=== PATIENT | female | born 1930 | race Caucasian/White ===

== ENCOUNTER 2017-01-08 18:53 | Inpatient (IN) | payer MEDICARE, BC ==
[~2017-01-08] VITALS: Ht 157.5 cm; Wt 72.0 kg
[~2017-01-08 18:53] MED LIST: B12-1CHW OR; CRAN125T PO; DOXY150C OR; DYAZ37.57 PO; LEVO.05 PO; LOVA10TA PO; SULF-154 PO; TAB-TAB PO
[2017-01-08 19:02] VITALS: BP 138/76; PULSE 110; RESP 18; TEMP 99.7; O2SAT 98
[2017-01-08 19:14] VITALS: O2SAT 97
[2017-01-08] MEDS ORDERED: ONDANSETRON HCL 4 MG/2 ML VIAL IV PUSH ONE (19:30)
[2017-01-08] MEDS ORDERED: MORPHINE SULFATE 4 MG/ML INJ IV PUSH ONE (19:30)
--- NOTE | 2017-01-08 19:30 | PD ---
HPI Chief Complaint: Pain: Acute or Chronic Time Seen by Provider: 19:25 Travel History International Travel<30 days: No Contact w/Intl Traveler<30days: No Traveled to known affect area: No History of Present Illness HPI 86-year-old female that presents to the ED for evaluation of left leg pain. Per patient she's had this left leg pain for the past 3 days. Per patient is progressively getting worse. Per daughter patient has not been able to eat or drink anything because she cannot get around because of the pain on the left leg. Per patient the left leg is from the knee down. She denies any injury or any falls. Per patient she does have swelling and erythema. Per patient is warm to touch. She was found by ambulance to have a temperature. Patient was brought here by ambulance because she cannot get around. 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 She is concerned that she might have a DVT. She cannot ambulate. Per patient the pain is 6 out of 10. Does not radiate and stays mainly in the left lower leg. She denies any numbness, tilling, weakness. Per daughter she does seem a little more confused than usual but attributes this to not eating well. Patient has a white coating and Versed. She takes no pain medications at home. She denies any history of MRSA or immunosuppression but she does take steroids daily. She has no chest pain. No shortness of breath. No back pain or neck pain. No urinary or bowel movement issues. No visual disturbances. Pain is progressively getting worse. Nothing makes the pain better. Walking makes the pain worse. PFSH Past Medical History Asthma: Yes Cancer: No Cardiovascular Problems: Yes High Cholesterol: Yes Endocrine: No Genitourinary: No Hypertension: Yes Immune Disorder: No Musculoskeletal: No Neurologic: No Psychiatric: No Reproductive: No Respiratory: Yes (4l nc home oxygen use ) Thyroid Disease: Yes (HYPOpneumosidis ) Influenza Vaccination: Yes ?: Not : 5 Para: 5 Past Surgical History Hysterectomy: Yes (PARTIAL) Other Surgery: Yes (bladder sling/mesh ) Social History Alcohol Use: Yes (occasional ) Tobacco Use: No Substance Use: No Allergies-Medications (Allergen,Severity, Reaction): Coded Allergies: Codeine (Verified Allergy, Severe, NAUSEA, 01/08/17) Versed (Verified Allergy, Unknown, 01/08/17) Reported Meds & Prescriptions Reported Meds & Active Scripts Active Reported [Natural Potassium] 99 Mg Fish Oil + D3 (Fish Oil-Cholecalciferol) 1,200-1,000 Mg-Unit Cap 1 Cap PO DAILY B-12 (Cyanocobalamin) 1,000 Mcg Subl 1,000 Mcg SL DAILY Aspirin 81 Mg Tabdr 81 Mg PO DAILY Synthroid (Levothyroxine Sodium) 75 Mcg Tab 75 Mcg PO DAILY Lovastatin 20 Mg Tab 20 Mg PO DAILY Sulfamethoxazole-Trimethoprim 800-160 Mg Tab 1 Tab PO 3XWEEK M,W,F Dyrenium (Triamterene) 50 Mg Cap 37.5 Mg PO DAILY Omeprazole 20 Mg Tab 20 Mg PO DAILY Prednisone 10 Mg Tab 10 Mg PO BID Review of Systems General / Constitutional: Positive: Fever, No: Chills, Weight Gain, Weight Loss, Other Eyes: No: Diploplia, Blurred Vision, Photophobia, Drainage, Redness, Foreign Body Sensation, Pain, Tearing, Blind Spots, Visual changes, Blindness, Other HENT: No: Headaches, Vertigo, Lightheadedness, Sore Throat, Rhinitis, Rhinorrhea, Congestion, Nosebleed, Neck Stiffness, Neck Pain, Masses, Gingival Bleeding, Dental Difficulties, Ear Discharge, Earache, Other Cardiovascular: No: Chest Pain or Discomfort, Palpitations, Irregular Rhythm, Tachycardia, Diaphoresis, Syncope, Dyspnea on exertion, Varicosities, Edema, Cyanosis, Varicosities, Phlebitis, Claudication, Other Respiratory: No: Cough, Shortness of Breath, Wheezing, Sneezing, Orthopnea, Hemoptysis, Stridor, Night Sweats, Pleuritic Pain, Other Gastrointestinal: No: Nausea, Vomiting, Diarrhea, Abdominal Pain, Hematemesis, Hematochezia, Constipation, Changes in Bowel Habits, Indigestion, Dysphagia, Loss of Appetite, Other Genitourinary: No: Urgency, Frequency, Dysuria, Nocturia, Hematuria, Decreased Urinary Output, Oliguria, Hesitancy, Dribbling, Incontinence, Pelvic Pain, Flank Pain, Dyspareunia, Discharge, Dysmenorrhea, Menorrhagia, Metorrhagia, Vaginal Bleeding, Other Musculoskeletal: Positive: Edema, Pain, No: Myalgias, Arthralgias, Limited ROM , Weakness, Cramping, Atrophy, Other Skin: Positive Rash, No Itching, No Dryness, No Lumps, No Hives, No Change in Pigmentation, No Change in nails, No Alopecia, No Lesions, No Breast Lumps, No Breast Tenderness, No Breast Swelling, No Other Neurologic: No: Weakness, Dizziness, Syncope, Focal Abnormalities, Coordination Problem, Tremor, Ataxia, Headache, Change in Mentation, Slurred Speech, Paresthesia, Incontinence, Seizures, Sensory Disturbance, Other Psychiatric: No: Anxiety, Depression, Suicidal Ideations, Disorder of Thought, Mood Disorder, Substance Abuse, Homicidal Ideation, Other Endocrine: No: Heat Intolerance, Cold Intolerance, Polyuria, Polydipsia, Other Hematologic/Lymphatic: No: Easy Bruising, Lymph Node Enlargement, Other Physical Exam Narrative GENERAL: SKIN: Warm and dry. HEAD: Atraumatic. Normocephalic. EYES: Pupils equal and round 4 mm reactive to light and accommodation. No scleral icterus. No injection or drainage. ENT: No nasal bleeding or discharge. Mucous membranes pink and moist. Tongue is midline. No uvula deviation. NECK: Trachea midline. No JVD. CARDIOVASCULAR: Regular rate and rhythm. No murmurs, S3, S4. RESPIRATORY: No accessory muscle use. Clear to auscultation. Breath sounds equal bilaterally. GASTROINTESTINAL: Abdomen soft, non-tender, nondistended. Hepatic and splenic margins not palpable. MUSCULOSKELETAL: Extremities without clubbing, cyanosis, or edema. No obvious deformities. Full range of motion of the upper and lower extremities bilaterally. Patient has difficulty moving the left ankle and foot secondary to pain. Patient does have 1+ pitting edema as well as erythema. Erythema is noted on the anterior aspect of the tibia and fibula as well as the dorsal foot. More than 15 cms. Tender to touch. Warm to the touch. 2+ pulses in the lower extremities bilaterally. Neurovascularly intact. No obvious mass or deformity noted. NEUROLOGICAL: Awake and alert. No obvious cranial nerve deficits. Motor grossly within normal limits. Five out of 5 muscle strength in the arms and legs. Normal speech. PSYCHIATRIC: Appropriate mood and affect; insight and judgment normal. Data Data Last Documented VS Vital Signs Date Time Temp Pulse Resp B/P Pulse Ox O2 Delivery O2 Flow Rate FiO2 01/08/17 19:14 97 Nasal Cannula 4 01/08/17 19:02 99.7 110 18 138/76 Orders Complete Blood Count With Diff (01/08/17 19:09) Basic Metabolic Panel (Bmp) (01/08/17 19:09) Prothrombin Time / Inr (Pt) (01/08/17 19:09) Act Partial Throm Time (Ptt) (01/08/17 19:09) Blood Culture (01/08/17 19:09) C-Reactive Protein (Crp) (01/08/17 19:09) Urinalysis - C+S If Indicated (01/08/17 19:09) Magnesium (Mg) (01/08/17 19:09) Iv Access Insert/Monitor (01/08/17 19:09) Ecg Monitoring (01/08/17 19:09) Oximetry (01/08/17 19:09) Lactic Acid (01/08/17 19:09) Tibia/Fibula (Ap/Lat) (01/08/17 ) Foot, Complete ([id number]) (01/08/17 ) Us Leg Venous Doppler (01/08/17 ) Morphine Inj (Morphine Inj) (01/08/17 19:30) Ondansetron Inj (Zofran Inj) (01/08/17 19:30) Vancomycin Inj (Vancomycin Inj) (01/08/17 20:00) Sodium Chlor 0.9% 1000 Ml Inj (Ns 1000 M (01/08/17 20:07) Admit Order (Ed Use Only) (01/08/17 20:19) Labs Laboratory Tests Test 01/08/17 01/08/17 19:15 20:05 White Blood Count 20.0 TH/MM3 Red Blood Count 3.78 MIL/MM3 Hemoglobin 12.7 GM/DL Hematocrit 36.1 % Mean Corpuscular Volume 95.6 FL Mean Corpuscular Hemoglobin 33.6 PG Mean Corpuscular Hemoglobin 35.1 % Concent Red Cell Distribution Width 13.9 % Platelet Count 249 TH/MM3 Mean Platelet Volume 8.7 FL Neutrophils (%) (Auto) 89.5 % Lymphocytes (%) (Auto) 6.2 % Monocytes (%) (Auto) 4.0 % Eosinophils (%) (Auto) 0.1 % Basophils (%) (Auto) 0.2 % Neutrophils # (Auto) 17.9 TH/MM3 Lymphocytes # (Auto) 1.2 TH/MM3 Monocytes # (Auto) 0.8 TH/MM3 Eosinophils # (Auto) 0.0 TH/MM3 Basophils # (Auto) 0.0 TH/MM3 CBC Comment AUTO DIFF Differential Total Cells 100 Counted Neutrophils % (Manual) 76 % Band Neutrophils % 9 % Lymphocytes % 11 % Monocytes % 4 % Neutrophils # (Manual) 17.0 TH/MM3 Differential Comment FINAL DIFF MANUAL Platelet Estimate NORMAL Platelet Morphology Comment NORMAL Red Cell Morphology Comment NORMAL Prothrombin Time 10.8 SEC Prothromb Time International 1.0 RATIO Ratio Activated Partial 27.2 SEC Thromboplast Time Sodium Level 134 MEQ/L Potassium Level 3.3 MEQ/L Chloride Level 94 MEQ/L Carbon Dioxide Level 32.3 MEQ/L Anion Gap 8 MEQ/L Blood Urea Nitrogen 20 MG/DL Creatinine 1.11 MG/DL Estimat Glomerular Filtration 47 ML/MIN Rate Random Glucose 121 MG/DL Lactic Acid Level 1.6 mmol/L Calcium Level 9.1 MG/DL Magnesium Level 1.7 MG/DL C-Reactive Protein 29.00 MG/DL Urine Color YELLOW Urine Turbidity CLEAR Urine pH 6.5 Urine Specific [place] 1.012 Urine Protein 30 mg/dL Urine Glucose (UA) NEG mg/dL Urine Ketones NEG mg/dL Urine Occult Blood TRACE Urine Nitrite NEG Urine Bilirubin NEG Urine Urobilinogen LESS THAN 2.0 MG/DL Urine Leukocyte Esterase NEG Urine RBC 2 /hpf Urine WBC LESS THAN 1 /hpf Microscopic Urinalysis Comment CULT NOT INDICATED MDM Medical Decision Making Medical Screen Exam Complete: Yes Emergency Medical Condition: Yes Medical Record Reviewed: Yes Interpretation(s) CBC Diagram 01/08/17 19:15 US shows no DVT CRP of 29 Differential Diagnosis DVT versus cellulitis versus fracture versus osteomyelitis versus edema Narrative Course 86-year-old female that presents to the ED for evaluation of left leg pain. Patient was properly examined and was found to have signs and symptoms consistent with appears to be cellulitis. Possible DVT still present. Recommendation is for labs and imaging. Patient is agreeable with this. Patient was given IV pain medications. Labs and imaging showed elevated WBC count, sepsis, no DVT. Case was discussed with attending who agrees with plan. Patient will be admitted to the hospital for IV antibiotics and sepsis workup , although at this time her WBC count could be high secondary to prednisone use. She is currently taking Bactrim prophylactically for pneumonia secondary to her pulmonary fibrosis which could cause resistance to infection. Thus patient was started on vancomycin. Patient was given IV fluids and vancomycin as well as morphine for pain. Lactic acid is negative at this time. This was discussed with the family and patient and they agreed to admission. Patient was admitted to [facility]. Dr Cervantes agrees to admission. Procedures EKG Prior to Arrival: No EKG Not Completed: EKG Not Medically Necessary Sepsis Criteria SIRS Criteria (2 or more): Heart rate over 90, WBC > 72283, < 4000 or > 10% bands (patient does take prednisone) Sepsis Criteria (SIRS+source): Infect source susp/known Diagnosis Primary Impression: Cellulitis Qualified Code: L03.116 - Cellulitis of left lower extremity Additional Impression: Leukocytosis Qualified Code: D72.829 - Leukocytosis, unspecified type Admitting Information Admitting Physician Requests: Admit Lavelle Salinas Jan 08, 2017 19:30
[2017-01-08 19:36] LABS: AUTOMATED NEUTROPHIL # 17.9 TH/MM3 (1.8-7.7); BASOPHIL % 0.2 % (0.0-2.0); EOSINOPHIL % 0.1 % (0.0-4.0); HEMATOCRIT 36.1 % (35.0-46.0); LYMPH % 6.2 % (9.0-44.0); LYMPHOCYTE # 1.2 TH/MM3 (1.0-4.8); MEAN CELL VOLUME 95.6 FL (80.0-100.0); MEAN CORPUSCULAR HEMOGLOBIN 33.6 PG (27.0-34.0); MEAN CORPUSCULAR HGB CONC 35.1 % (32.0-36.0); NEUT % 89.5 % (16.0-70.0); PLATELET COUNT 249 TH/MM3 (150-450); RED BLOOD COUNT 3.78 MIL/MM3 (4.00-5.30); RED CELL DISTRIBUTION WIDTH 13.9 % (11.6-17.2)
[2017-01-08] MEDS ORDERED: PRED10 PO (19:37)
[2017-01-08] MEDS ORDERED: OMEP20TA PO (19:38)
[2017-01-08 19:41] LABS: HEMO FLAGS AUTO DIFF
[2017-01-08 19:48] LABS: APTT (PATIENT) 27.2 SEC (24.3-30.1); PROTHROMBIN TIME - PATIENT 10.8 SEC (9.8-11.6)
[2017-01-08] MEDS ORDERED: VANCOMYCIN INJ 1,000 MG in SODIUM CHLOR 0.9% 250 ML INJ 250 ML IV ONE (20:00)
--- NOTE | 2017-01-08 20:01 | RADRPT ---
EXAM DATE/TIME: 01/08/2017 19:24 [facility] COMPARISON: No previous studies available for comparison. INDICATIONS : Redness. MEDICAL HISTORY : Hypertension. Hypercholesterolemia. Thyroid disease. Asthma. SURGICAL HISTORY : Bladder sling. ENCOUNTER: Initial ACUITY: 1 week PAIN SCORE: 6/10 LOCATION: Left leg. TECHNIQUE: Venous ultrasound of the leg was performed from the inguinal ligament to the proximal calf. Real-edwige e, color Doppler and spectral tracing, compression and augmentation techniques were used. FINDINGS: There is normal compressibility of the deep venous system from the inguinal region to the proximal ca lf. No echogenic clot is seen in the lumen of the common femoral, femoral, popliteal, and posterior tibial veins. There is a normal response of the venous system to proximal and distal augmentation an d respiration. CONCLUSION: No DVT. Sean Clemente MD on January 08, 2017 at 19:59 Board Certified Radiologist. This report was verified electronically.
[2017-01-08 20:02] LABS: BICARBONATE 32.3 MEQ/L (21.0-32.0); MAGNESIUM 1.7 MG/DL (1.5-2.5); POTASSIUM 3.3 MEQ/L (3.5-5.1)
[2017-01-08] MEDS ORDERED: SODIUM CHLOR 0.9% 1000 ML INJ 1,000 ML IV SCH (20:07)
[2017-01-08 20:28] LABS: BLOOD, URINE TRACE (NEG); COMMENT (UR) CULT NOT INDICATED; CULTURE IF INDICATED CULT NOT INDICATED; GLUCOSE,URINE NEG (NEG); KETONE, URINE NEG (NEG); NITRITE,URINE NEG (NEG); PH, URINE 6.5 (5.0-8.5); URINE COLOR YELLOW (YELLW/STRAW)
[2017-01-08] MEDS ORDERED: NALOXONE HCL 0.4 MG/ML AMP IV PRN (20:30)
[2017-01-08] MEDS ORDERED: SODIUM CHLORIDE 0.9% FLUSH 5 ML FLUSH FLUSH PRN (20:30)
[2017-01-08] MEDS ORDERED: Vancomycin Consult Pharmacy 1 EA OTHER SCH (20:30)
[2017-01-08] MEDS ORDERED: TRIA1CAP6 PO (20:32)
[2017-01-08] MEDS ORDERED: LOVA20TA PO (20:35)
[2017-01-08] MEDS ORDERED: SULF1TAB23 PO (20:35)
[2017-01-08] MEDS ORDERED: LEVO.075 PO (20:36)
[2017-01-08] MEDS ORDERED: FISHCAP4 PO (20:37)
[2017-01-08] MEDS ORDERED: CYAN100025 SL (20:37)
[2017-01-08] MEDS ORDERED: ASPI1TAB69 PO (20:37)
[2017-01-08] MEDS ORDERED: NATURAL POTASSIUM (20:38)
[2017-01-08 20:39] VITALS: BP 134/69; PULSE 92; RESP 18; O2SAT 97
[2017-01-08 20:40] LABS: BANDS 9 % (0-6); PLATELET ESTIMATE SMEAR NORMAL (NORMAL); PLATELET MORPHOLOGY NORMAL (NORMAL); POLYS (SEG NEUTROPHILS) 76 % (16-70); SCAN/DIFF FINAL DIFF MANUAL; WBC DIFF SAMPLE 100
[2017-01-08] MEDS: SODIUM CHLORIDE 0.9% FLUSH 5 ML FLUSH FLUSH SCH (20:52)
[2017-01-08] MEDS: PIPERACIL-TAZO 4.5 GM PREMIX 100 ML IV SCH ×2 (21:00→22:28)
--- NOTE | 2017-01-08 21:09 | RADRPT ---
EXAM DATE/TIME: 01/08/2017 20:13 [facility] COMPARISON: No previous studies available for comparison. INDICATIONS : Pain and inflammation in left leg for three days. MEDICAL HISTORY : Hypertension. Hypercholesterolemia. Thyroid disease. Asthma. SURGICAL HISTORY : Bladder sling. ENCOUNTER: Initial ACUITY: 3 days PAIN SCORE: 8/10 LOCATION: Left leg FINDINGS: No fracture is seen. The knee and ankle joints are grossly normally aligned. There is mild soft-tissue swelling at the ankle. There is hypertrophic change seen at the distal Achilles ten don and at the Achilles attachment site at the posterior calcaneus. Vascular calcifications are seen . CONCLUSION: 1. Mild soft-tissue swelling at the ankle. 2. Chronic change at the distal Achilles and at the Achilles attachment site at the posterior calcane us. Sean Clemente MD on January 08, 2017 at 20:35 Board Certified Radiologist. This report was verified electronically.
--- NOTE | 2017-01-08 21:10 | RADRPT ---
EXAM DATE/TIME: 01/08/2017 20:15 [facility] COMPARISON: No previous studies available for comparison. INDICATIONS : Pain and inflammation in left foot for three days. MEDICAL HISTORY : Hypertension. Hypercholesterolemia. Thyroid disease. Asthma. SURGICAL HISTORY : Bladder sling. ENCOUNTER: Initial ACUITY: 3 days PAIN SCORE: 8/10 LOCATION: Left foot FINDINGS: No fracture is seen. The bones and joints are normally aligned. There is hypertrophic change seen at the Achilles tendon and a prominent spur at the Achilles attachment site at the posterior calcaneus. Vascular calcifications are seen. CONCLUSION: Chronic change at the Achilles. The Achilles does appear thickened. Sean Clemente MD on January 08, 2017 at 20:36 Board Certified Radiologist. This report was verified electronically.
[2017-01-08] MEDS ORDERED: VANCOMYCIN 1,000 MG/NS 250 ML IV ONE ×2 (22:00)
[2017-01-08 23:17] VITALS: BP 149/75; PULSE 79; RESP 18; O2SAT 98
[2017-01-09 01:15] VITALS: PULSE 90
--- NOTE | 2017-01-09 02:51 | HHI.HP ---
HPI Service [facility] Primary Care Physician Jessi Rothman MD Admission Diagnosis acute left leg cellulitis, leukocytosis Diagnoses: Chief Complaint: left leg swelling and pain Travel History International Travel<30 Days: No Contact w/Intl Traveler <30 Da: No Traveled to Known Affected Are: No History of Present Illness History taken from patient, her daughter at the bedside and ED physician. 86 y/o male with a history of pulmonary fibrosis, hyperlipidemia, and hypothyroidism presented with complaints and pain and swelling in left lower extremity for the past 3 days. She was unable to weight-bear and walk at home. Over the last 3 days the swelling and pain has increased. She states she was recently on Bactrim on MWF, along with prednisone for the last year for hypersensitivity pneumonitis She denies any fever, chills, chest pain, nausea or vomiting. PCP: Dr. Tejeda Handyman: Dr. Lee Part from the above, patient denies any recent fever at home/nausea/vomiting/ diarrhea/urinary burning or pain on urination. Denies any hematemesis/hematochezia/melena/hematuria. Denies any chest pain/palpitations/dizziness/syncopal episodes. Reports she is chronically short of breath and on home oxygen 4 L 24/7 for her hypersensitivity pneumonitis. Review of Systems Constitutional: DENIES: Fever, Chills Respiratory: DENIES: Cough, Sputum production, Shortness of breath Cardiovascular: COMPLAINS OF: Lower Extremity Edema (RLE), DENIES: Chest pain , Dyspnea on Exertion Gastrointestinal: DENIES: Constipation, Diarrhea, Nausea, Vomiting Genitourinary: DENIES: Urgency, Hematuria, Dysuria Musculoskeletal: COMPLAINS OF: Joint pain (left ankel ), DENIES: Back pain, Neck pain Hematologic/lymphatic: DENIES: Lymphadenopathy Immunologic/allergic: DENIES: Urticaria Neurologic: COMPLAINS OF: Localized weakness, DENIES: Headache Past Family Social History Past Medical History Hypersensitivity pneumonitis O2 4L 24hr Hyperlipidemia Gerd Hypothyroidism Asthma as a child Past Surgical History Hysterectomy Bladder surgery Right shoulder right achilias tendon repair Reported Medications Reported Meds & Active Scripts Active Reported [Natural Potassium] 99 Mg Fish Oil + D3 (Fish Oil-Cholecalciferol) 1,200-1,000 Mg-Unit Cap 1 Cap PO DAILY B-12 (Cyanocobalamin) 1,000 Mcg Subl 1,000 Mcg SL DAILY Aspirin 81 Mg Tabdr 81 Mg PO DAILY Synthroid (Levothyroxine Sodium) 75 Mcg Tab 75 Mcg PO DAILY Lovastatin 20 Mg Tab 20 Mg PO DAILY Sulfamethoxazole-Trimethoprim 800-160 Mg Tab 1 Tab PO 3XWEEK M,W,F Dyrenium (Triamterene) 50 Mg Cap 37.5 Mg PO DAILY Omeprazole 20 Mg Tab 20 Mg PO DAILY Prednisone 10 Mg Tab 10 Mg PO BID Allergies: Coded Allergies: Codeine (Verified Allergy, Severe, NAUSEA, 01/08/17) Versed (Verified Allergy, Unknown, 01/08/17) Active Ordered Medications Current Medications Medications (Trade) Dose Ordered Sig/Vannesa Route Start Time Stop Time Status Last Admin (NS Flush) 2 ml UNSCH PRN FLUSH 01/08/17 20:30 (NS Flush) 2 ml BID FLUSH 01/08/17 21:00 01/08/17 20:52 (Lovenox Inj) 30 mg Q24H SQ 01/09/17 09:00 Naloxone HCl 0.4 mg 0.4 mg UNSCH PRN IV 01/08/17 20:30 Piperacillin Sod/ Tazobactam Sod 100 ml @ 200 mls/hr Q6H IV 01/08/17 21:00 01/08/17 22:28 (Vancomycin Consult Pharmacy) 0 ml @ 0 mls/hr UNSCH OTHER 01/08/17 20:30 (Lactinex) 1 tab TID PO 01/09/17 09:00 Family History Brother: heart disease, DM Father: [place] Social History Tobacco use: Denies Alcohol use: Socially Illicit drug use: Denies Physical Exam Vital Signs Vital Signs Date Time Temp Pulse Resp B/P Pulse Ox O2 Delivery O2 Flow Rate FiO2 01/09/17 01:15 90 01/08/17 23:17 79 18 149/75 98 Nasal Cannula 4 01/08/17 20:39 92 18 134/69 97 Nasal Cannula 4 01/08/17 19:14 97 Nasal Cannula 4 01/08/17 19:02 99.7 110 18 138/76 98 Physical Exam GENERAL: This is a well-nourished, well-developed patient, in no apparent distress. SKIN: Diaphoretic . Left foot ankle at the lateral malleolus with soft tissue swelling, blanching erythema, pain. HEAD: Atraumatic. Normocephalic. EYES: Pupils equal round and reactive. Extraocular motions intact. No scleral icterus. No injection or drainage. ENT: Nose without bleeding, purulent drainage or septal hematoma. Airway patent. NECK: Trachea midline. No JVD or lymphadenopathy. CARDIOVASCULAR: Regular rate and rhythm without murmurs, gallops, or rubs. RESPIRATORY: Bilateral crepitus throughout. No wheezes, rales, or rhonchi. GASTROINTESTINAL: Abdomen soft, non-tender, nondistended. No guarding. MUSCULOSKELETAL: LLE redness and swelling at the ankle . Tender to touch. No calf tenderness. NEUROLOGICAL: Awake and alert.Motor and sensory grossly within normal limits. Normal speech. Laboratory Laboratory Tests Test 01/08/17 01/08/17 19:15 20:05 White Blood Count 20.0 Red Blood Count 3.78 Hemoglobin 12.7 Hematocrit 36.1 Mean Corpuscular Volume 95.6 Mean Corpuscular Hemoglobin 33.6 Mean Corpuscular Hemoglobin 35.1 Concent Red Cell Distribution Width 13.9 Platelet Count 249 Mean Platelet Volume 8.7 Neutrophils (%) (Auto) 89.5 Lymphocytes (%) (Auto) 6.2 Monocytes (%) (Auto) 4.0 Eosinophils (%) (Auto) 0.1 Basophils (%) (Auto) 0.2 Neutrophils # (Auto) 17.9 Lymphocytes # (Auto) 1.2 Monocytes # (Auto) 0.8 Eosinophils # (Auto) 0.0 Basophils # (Auto) 0.0 CBC Comment AUTO DIFF Differential Total Cells 100 Counted Neutrophils % (Manual) 76 Band Neutrophils % 9 Lymphocytes % 11 Monocytes % 4 Neutrophils # (Manual) 17.0 Differential Comment FINAL DIFF MANUAL Platelet Estimate NORMAL Platelet Morphology Comment NORMAL Red Cell Morphology Comment NORMAL Prothrombin Time 10.8 Prothromb Time International 1.0 Ratio Activated Partial 27.2 Thromboplast Time Sodium Level 134 Potassium Level 3.3 Chloride Level 94 Carbon Dioxide Level 32.3 Anion Gap 8 Blood Urea Nitrogen 20 Creatinine 1.11 Estimat Glomerular Filtration 47 Rate Random Glucose 121 Lactic Acid Level 1.6 Calcium Level 9.1 Magnesium Level 1.7 C-Reactive Protein 29.00 Urine Color YELLOW Urine Turbidity CLEAR Urine pH 6.5 Urine Specific [place] 1.012 Urine Protein 30 Urine Glucose (UA) NEG Urine Ketones NEG Urine Occult Blood TRACE Urine Nitrite NEG Urine Bilirubin NEG Urine Urobilinogen LESS THAN 2.0 Urine Leukocyte Esterase NEG Urine RBC 2 Urine WBC LESS THAN 1 Microscopic Urinalysis Comment CULT NOT INDICATED Date/Time Procedure Status Source Growth 01/08/17 19:20 Aerobic Blood Culture Received Blood Peripheral Pending 01/08/17 19:20 Anaerobic Blood Culture Received Blood Peripheral Pending Result Diagram: 01/08/17191401/08/171914 Imaging Last Impressions Tibia/Fibula X-Ray 01/08/17 0000 Signed Impressions: Service Date/Time: Sunday, January 08, 2017 20:13 - CONCLUSION: 1. Mild soft-tissue swelling at the ankle. 2. Chronic change at the distal Achilles and at the Achilles attachment site at the posterior calcaneus. Sean Clemente MD Lower Extremity Ultrasound 01/08/17 0000 Signed Impressions: Service Date/Time: Sunday, January 08, 2017 19:24 - CONCLUSION: No DVT. Sean Clemente MD Foot X-Ray 01/08/17 0000 Signed Impressions: Service Date/Time: Sunday, January 08, 2017 20:15 - CONCLUSION: Chronic change at the Achilles. The Achilles does appear thickened. Sean Clemente MD Assessment and Plan Problem List: (1) Cellulitis ICD Code: L03.90 Status: Acute (2) Leukocytosis ICD Code: D72.829 Status: Acute Assessment and Plan 86 y/o male with a history of hypersensitivity pneumonitis, hyperlipidemia, and hypothyroidism presented with: Cellulitis, left anklefailed out patient therapy since patient is on Bactrim chronically. -Vancomycin IV with pharmacy consult for creatinine clearance and levels -Zosyn 4.5 g IV every 6 hours LeukocytosisPartly due to infection. However patient is also on chronic prednisone therapy. Labs: wbc 20.0, neutrophils 89.5 % -UA negative -Blood cultures pending -Trend CBC -Supportive IVF DVT prophylaxis: Lovenox Written by Nusrat CURTIS, acting as scribe for Dr. Cervantes on 01/09/17 at 0342. The documentation accurately reflects the work performed [id number] and decisions made by me and the physician Dr Cervantes on 01/09/17. The documentation accurately reflects the work performed [id number] by me on at 0342 Discussed Condition With Patient and ED physician Physician Certification 2 Midnight Certification Type: Admission for Inpatient Services Order for Inpatient Services The services are ordered in accordance with Medicare regulations or non- Medicare payer requirements, as applicable. In the case of services not specified as inpatient-only, they are appropriately provided as inpatient services in accordance with the 2-midnight benchmark. Estimated LOS (days): 3 days is the estimated time the patient will need to remain in the hospital, assuming treatment plan goals are met and no additional complications. Post-Hospital Plan: Home Problem Qualifiers (1) Cellulitis: Qualified Code: L03.116 - Cellulitis of left lower extremity (2) Leukocytosis: Qualified Code: D72.829 - Leukocytosis, unspecified type Nusrat Huynh Jan 09, 2017 02:51 Armen Cervantes MD Jan 09, 2017 08:15
[2017-01-09] MEDS: PIPERACIL-TAZO 4.5 GM PREMIX 100 ML IV SCH ×4 (03:13→22:08)
[2017-01-09 03:46] VITALS: BP 124/72; PULSE 88; RESP 18; TEMP 98.2; O2SAT 96
[2017-01-09 05:19] LABS: AUTOMATED NEUTROPHIL # 14.5 TH/MM3 (1.8-7.7); BASOPHIL % 0.2 % (0.0-2.0); HEMATOCRIT 32.4 % (35.0-46.0); HEMO FLAGS DIFF FINAL; LYMPH % 7.9 % (9.0-44.0); LYMPHOCYTE # 1.3 TH/MM3 (1.0-4.8); MEAN CORPUSCULAR HEMOGLOBIN 32.6 PG (27.0-34.0); MEAN CORPUSCULAR HGB CONC 33.7 % (32.0-36.0); MONO % 4.5 % (0.0-8.0); NEUT % 87.4 % (16.0-70.0); PLATELET COUNT 202 TH/MM3 (150-450); RED BLOOD COUNT 3.34 MIL/MM3 (4.00-5.30); RED CELL DISTRIBUTION WIDTH 14.1 % (11.6-17.2); WHITE BLOOD COUNT 16.6 TH/MM3 (4.0-11.0)
[2017-01-09 05:29] LABS: POTASSIUM 3.4 MEQ/L (3.5-5.1)
[2017-01-09 07:27] VITALS: BP 126/70; PULSE 68; RESP 19; TEMP 97.4; O2SAT 100
[2017-01-09] MEDS: LEVOTHYROXINE SODIUM 75 MCG TAB PO SCH (09:00)
[2017-01-09] MEDS ORDERED: TRIAMTERENE 37.5 MG PO SCH (09:00)
[2017-01-09] MEDS ORDERED: VANCOMYCIN 1,000 MG/NS 250 ML IV SCH ×2 (10:00)
[2017-01-09] MEDS: PRAVASTATIN SOD 20 MG TAB PO SCH (10:58)
[2017-01-09] MEDS: ASPIRIN EC 81 MG TABEC PO SCH (10:58)
[2017-01-09] MEDS: LACTOBACILLUS ACIDOPHILUS TAB PO SCH ×3 (10:58→18:28)
[2017-01-09] MEDS: predniSONE 10 MG TAB PO SCH ×2 (10:58→22:08)
[2017-01-09] MEDS: ENOXAPARIN SODIUM 30 MG/0.3 ML SYRINGE SQ SCH (10:58)
[2017-01-09] MEDS: PANTOPRAZOLE SOD 20 MG DELAYED RELEASE TAB PO SCH (10:58)
[2017-01-09] MEDS: SODIUM CHLORIDE 0.9% FLUSH 5 ML FLUSH FLUSH SCH ×2 (10:59→22:09)
[2017-01-09 11:16] VITALS: BP 140/61; PULSE 80; RESP 19; TEMP 96.8; O2SAT 100
[2017-01-09] MEDS ORDERED: POTASSIUM CHLORIDE 20 MEQ CONTROLLED RELEASE TAB PO ONE (11:45)
--- NOTE | 2017-01-09 11:48 | HHI.PR ---
Subjective Remarks resting comfortably with no distress. says that her left leg looks better today. no fever this morning. Objective Vitals Vital Signs Date Time Temp Pulse Resp B/P Pulse Ox O2 Delivery O2 Flow Rate FiO2 01/09/17 11:16 96.8 80 19 140/61 100 01/09/17 07:27 97.4 68 19 126/70 100 01/09/17 03:46 98.2 88 18 124/72 96 01/09/17 01:15 90 01/08/17 23:17 79 18 149/75 98 Nasal Cannula 4 01/08/17 20:39 92 18 134/69 97 Nasal Cannula 4 01/08/17 19:14 97 Nasal Cannula 4 01/08/17 19:02 99.7 110 18 138/76 98 I/O 01/08/17 01/08/17 01/08/17 01/09/17 01/09/17 01/09/17 07:00 15:00 23:00 07:00 15:00 23:00 Output Total 250 ml Balance -250 ml Output Urine Total 250 ml # Voids 1 Result Diagram: 01/09/17 0438 01/09/17 0428 Imaging Last Impressions Tibia/Fibula X-Ray 01/08/17 0000 Signed Impressions: Service Date/Time: Sunday, January 08, 2017 20:13 - CONCLUSION: 1. Mild soft-tissue swelling at the ankle. 2. Chronic change at the distal Achilles and at the Achilles attachment site at the posterior calcaneus. Sean Clemente MD Lower Extremity Ultrasound 01/08/17 0000 Signed Impressions: Service Date/Time: Sunday, January 08, 2017 19:24 - CONCLUSION: No DVT. Sean Clemente MD Foot X-Ray 01/08/17 0000 Signed Impressions: Service Date/Time: Sunday, January 08, 2017 20:15 - CONCLUSION: Chronic change at the Achilles. The Achilles does appear thickened. Sean Clemente MD Objective Remarks GENERAL: This is a well-nourished, well-developed patient, in no apparent distress. CARDIOVASCULAR: Regular rate and regular rhythm without murmurs, gallops, or rubs. RESPIRATORY: Clear to auscultation. Breath sounds equal bilaterally. No wheezes , rales, or rhonchi. GASTROINTESTINAL: Abdomen soft, non-tender, nondistended. Normal, active bowel sounds MUSCULOSKELETAL: Extremities without clubbing, cyanosis, or edema. NEURO: Alert & Oriented x4 to person, place, time, situation. Moves all ext x4 skin; some erythema noted over the left leg Procedures none Medications and IVs Current Medications Morphine Sulfate (Morphine Inj) 4 mg ONCE ONCE IV PUSH Last administered on 19:29; Start 01/08/17 at 19:30; Stop 01/08/17 at 19:31; Status DC Ondansetron HCl 4 mg 4 mg ONCE ONCE IV PUSH Last administered on 01/08/17 19: 28; Start 01/08/17 at 19:30; Stop 01/08/17 at 19:31; Status DC Vancomycin HCl 1000 mg/Sodium Chloride 250 ml @ 250 mls/hr ONCE ONCE IV Last administered on 01/08/17 20:31; Start 01/08/17 at 20:00; Stop 01/08/17 at 20:59 ; Status DC Sodium Chloride (NS 1000 ml Inj) 1,000 ml @ 1,000 mls/hr Q1H IV Last administered on 01/08/17 20:31; Start 01/08/17 at 20:07; Stop 01/08/17 at 21:06 ; Status DC IV Flush (NS Flush) 2 ml UNSCH PRN FLUSH FLUSH AFTER USING IV ACCESS Last administered on 01/09/17 03:12; Start 01/08/17 at 20:30 IV Flush (NS Flush) 2 ml BID FLUSH Last administered on 01/09/17 10:59; Start 01/08/17 at 21:00 Enoxaparin Sodium (Lovenox Inj) 30 mg Q24H SQ Last administered on 01/09/17 10 :58; Start 01/09/17 at 09:00 Naloxone HCl 0.4 mg 0.4 mg UNSCH PRN IV SEE LABEL COMMENTS; Start 01/08/17 at 20:30 Piperacillin Sod/ Tazobactam Sod 100 ml @ 200 mls/hr Q6H IV Last administered on 01/09/17 10:59; Start 01/08/17 at 21:00 Pharmacy Profile Note (Vancomycin Consult Pharmacy) 0 ml @ 0 mls/hr UNSCH OTHER ; Start 01/08/17 at 20:30 Lactobacillus Acidophilus 1 tab 1 tab TID PO Last administered on 01/09/17 10: 58; Start 01/09/17 at 09:00 Vancomycin HCl/ Sodium Chloride (Vancomycin Inj/ NS 250 ml Inj) 250 ml @ 250 mls/hr ONCE ONCE IV ; Start 01/08/17 at 22:00; Stop 01/08/17 at 22:59; Status DC Aspirin (Ecotrin Ec) 81 mg DAILY PO Last administered on 01/09/17 10:58; Start 01/09/17 at 09:00 Levothyroxine Sodium (Synthroid) 75 mcg DAILY@0600 PO ; Start 01/09/17 at 09:00 Pravastatin Sodium (Pravachol) 20 mg DAILY PO Last administered on 01/09/17 10 :58; Start 01/09/17 at 09:00 Pantoprazole Sodium (Protonix) 20 mg DAILY PO Last administered on 01/09/17 10 :58; Start 01/09/17 at 09:00 Prednisone (Deltasone) 10 mg BID PO Last administered on 01/09/17 10:58; Start 01/09/17 at 09:00 Non-Formulary Medication 37.5 mg 37.5 mg DAILY PO Edema; Start 01/09/17 at 09:00 ; Status UNV Vancomycin HCl 1000 mg/Sodium Chloride 250 ml @ 250 mls/hr Q12H IV ; Start at 10:00; Status Cancel Vancomycin HCl/ Sodium Chloride (Vancomycin Inj/ NS 250 ml Inj) 250 ml @ 250 mls/hr Q24H IV ; Start 01/09/17 at 20:00 Miscellaneous Information SPECIFIC LAB TO BE DRAWN:VANCOMYCIN TROUGH DATE TO... ONCE ONCE XX ; Start 01/11/17 at 19:45; Stop 01/11/17 at 19:46 A/P Assessment and Plan A/P Cellulitis, left anklefailed out patient therapy since patient is on Bactrim chronically. -Vancomycin IV with pharmacy consult for creatinine clearance and levels -Zosyn 4.5 g IV every 6 hours LeukocytosisPartly due to infection. However patient is also on chronic prednisone therapy. trending down. -UA negative -Blood cultures negative so far. -Trend CBC -Supportive IVF DVT prophylaxis: Willow Hyde MD Jan 09, 2017 11:48
[2017-01-09 15:12] VITALS: BP 117/64; PULSE 81; RESP 17; TEMP 98.5; O2SAT 100
[2017-01-09 19:43] VITALS: BP 124/66; PULSE 77; RESP 18; TEMP 98.8; O2SAT 99
[2017-01-09] MEDS: VANCOMYCIN 1,000 MG/NS 250 ML IV SCH ×2 (20:38)
[2017-01-10] VITALS (7 sets, daily range): BP systolic 121–152; BP diastolic 58–82; PULSE 57–79; RESP 18–21; TEMP 97.7–98.7; O2SAT 95–100
[2017-01-10] MEDS: PIPERACIL-TAZO 4.5 GM PREMIX 100 ML IV SCH ×4 (03:05→23:25)
[2017-01-10 05:10] LABS: AUTOMATED NEUTROPHIL # 10.1 TH/MM3 (1.8-7.7); BASOPHIL % 0.2 % (0.0-2.0); HEMATOCRIT 34.2 % (35.0-46.0); HEMO FLAGS DIFF FINAL; LYMPH % 9.8 % (9.0-44.0); LYMPHOCYTE # 1.2 TH/MM3 (1.0-4.8); MEAN CELL VOLUME 97.1 FL (80.0-100.0); MEAN CORPUSCULAR HEMOGLOBIN 33.3 PG (27.0-34.0); MEAN CORPUSCULAR HGB CONC 34.3 % (32.0-36.0); MONO % 5.2 % (0.0-8.0); NEUT % 84.8 % (16.0-70.0); PLATELET COUNT 210 TH/MM3 (150-450); RED BLOOD COUNT 3.53 MIL/MM3 (4.00-5.30); RED CELL DISTRIBUTION WIDTH 13.8 % (11.6-17.2); WHITE BLOOD COUNT 11.9 TH/MM3 (4.0-11.0)
[2017-01-10] MEDS: LEVOTHYROXINE SODIUM 75 MCG TAB PO SCH (06:05)
[2017-01-10] MEDS: TRIAMTERENE/HCTZ 37.5 MG/25 MG CAP PO SCH (09:15)
[2017-01-10] MEDS: ASPIRIN EC 81 MG TABEC PO SCH (09:15)
[2017-01-10] MEDS: LACTOBACILLUS ACIDOPHILUS TAB PO SCH ×3 (09:15→18:17)
[2017-01-10] MEDS: predniSONE 10 MG TAB PO SCH ×2 (09:15→21:32)
[2017-01-10] MEDS: PANTOPRAZOLE SOD 20 MG DELAYED RELEASE TAB PO SCH (09:15)
[2017-01-10] MEDS: SODIUM CHLORIDE 0.9% FLUSH 5 ML FLUSH FLUSH SCH ×2 (09:16→21:31)
[2017-01-10] MEDS: ENOXAPARIN SODIUM 30 MG/0.3 ML SYRINGE SQ SCH (09:16)
[2017-01-10] MEDS: PRAVASTATIN SOD 20 MG TAB PO SCH (09:16)
--- NOTE | 2017-01-10 12:32 | HHI.PR ---
Subjective Remarks resting comfortably with no distress. remains afebrile. denies pain. complaining of generalized weakness. Objective Vitals Vital Signs Date Time Temp Pulse Resp B/P Pulse Ox O2 Delivery O2 Flow Rate FiO2 01/10/17 11:17 97.7 76 18 127/66 100 01/10/17 07:32 97.7 73 18 140/68 95 01/10/17 05:16 98.4 58 21 121/58 98 01/09/17 19:43 98.8 77 18 124/66 99 01/09/17 15:12 98.5 81 17 117/64 100 Result Diagram: 01/10/17 0431 01/09/17 0428 Imaging Last Impressions Tibia/Fibula X-Ray 01/08/17 0000 Signed Impressions: Service Date/Time: Sunday, January 08, 2017 20:13 - CONCLUSION: 1. Mild soft-tissue swelling at the ankle. 2. Chronic change at the distal Achilles and at the Achilles attachment site at the posterior calcaneus. Sean Clemente MD Lower Extremity Ultrasound 01/08/17 0000 Signed Impressions: Service Date/Time: Sunday, January 08, 2017 19:24 - CONCLUSION: No DVT. Sean Clemente MD Foot X-Ray 01/08/17 0000 Signed Impressions: Service Date/Time: Sunday, January 08, 2017 20:15 - CONCLUSION: Chronic change at the Achilles. The Achilles does appear thickened. Sean Clemente MD Objective Remarks GENERAL: This is a well-nourished, well-developed patient, in no apparent distress. CARDIOVASCULAR: Regular rate and regular rhythm without murmurs, gallops, or rubs. RESPIRATORY: Clear to auscultation. Breath sounds equal bilaterally. No wheezes , rales, or rhonchi. GASTROINTESTINAL: Abdomen soft, non-tender, nondistended. Normal, active bowel sounds MUSCULOSKELETAL: Extremities without clubbing, cyanosis, or edema. NEURO: Alert & Oriented x4 to person, place, time, situation. Moves all ext x4 skin; some erythema noted over the left leg Procedures none Medications and IVs Current Medications Morphine Sulfate (Morphine Inj) 4 mg ONCE ONCE IV PUSH Last administered on t 19:29; Start 01/08/17 at 19:30; Stop 01/08/17 at 19:31; Status DC Ondansetron HCl 4 mg 4 mg ONCE ONCE IV PUSH Last administered on 01/08/17 19: 28; Start 01/08/17 at 19:30; Stop 01/08/17 at 19:31; Status DC Vancomycin HCl 1000 mg/Sodium Chloride 250 ml @ 250 mls/hr ONCE ONCE IV Last administered on 01/08/17 20:31; Start 01/08/17 at 20:00; Stop 01/08/17 at 20:59 ; Status DC Sodium Chloride (NS 1000 ml Inj) 1,000 ml @ 1,000 mls/hr Q1H IV Last administered on 01/08/17 20:31; Start 01/08/17 at 20:07; Stop 01/08/17 at 21:06 ; Status DC IV Flush (NS Flush) 2 ml UNSCH PRN FLUSH FLUSH AFTER USING IV ACCESS Last administered on 01/09/17 03:12; Start 01/08/17 at 20:30 IV Flush (NS Flush) 2 ml BID FLUSH Last administered on 01/10/17 09:16; Start 01/08/17 at 21:00 Enoxaparin Sodium (Lovenox Inj) 30 mg Q24H SQ Last administered on 01/10/17 09 :16; Start 01/09/17 at 09:00 Naloxone HCl 0.4 mg 0.4 mg UNSCH PRN IV SEE LABEL COMMENTS; Start 01/08/17 at 20:30 Piperacillin Sod/ Tazobactam Sod 100 ml @ 200 mls/hr Q6H IV Last administered on 01/10/17 09:16; Start 01/08/17 at 21:00 Pharmacy Profile Note (Vancomycin Consult Pharmacy) 0 ml @ 0 mls/hr UNSCH OTHER ; Start 01/08/17 at 20:30 Lactobacillus Acidophilus 1 tab 1 tab TID PO Last administered on 01/10/17 09: 15; Start 01/09/17 at 09:00 Vancomycin HCl/ Sodium Chloride (Vancomycin Inj/ NS 250 ml Inj) 250 ml @ 250 mls/hr ONCE ONCE IV ; Start 01/08/17 at 22:00; Stop 01/08/17 at 22:59; Status DC Aspirin (Ecotrin Ec) 81 mg DAILY PO Last administered on 01/10/17 09:15; Start 01/09/17 at 09:00 Levothyroxine Sodium (Synthroid) 75 mcg DAILY@0600 PO Last administered on 01/10 06:05; Start 01/09/17 at 09:00 Pravastatin Sodium (Pravachol) 20 mg DAILY PO Last administered on 01/10/17 09 :16; Start 01/09/17 at 09:00 Pantoprazole Sodium (Protonix) 20 mg DAILY PO Last administered on 01/10/17 09 :15; Start 01/09/17 at 09:00 Prednisone (Deltasone) 10 mg BID PO Last administered on 01/10/17 09:15; Start 01/09/17 at 09:00 Non-Formulary Medication 37.5 mg 37.5 mg DAILY PO Edema; Start 01/09/17 at 09:00 ; Stop 01/09/17 at 11:46; Status DC Vancomycin HCl 1000 mg/Sodium Chloride 250 ml @ 250 mls/hr Q12H IV ; Start at 10:00; Status Cancel Vancomycin HCl/ Sodium Chloride (Vancomycin Inj/ NS 250 ml Inj) 250 ml @ 250 mls/hr Q24H IV Last administered on 01/09/17 20:38; Start 01/09/17 at 20:00 Miscellaneous Information SPECIFIC LAB TO BE DRAWN:VANCOMYCIN TROUGH DATE TO... ONCE ONCE XX ; Start 01/11/17 at 19:45; Stop 01/11/17 at 19:46 Triamterene/HCTZ (Dyazide 37.5-25 Mg) 1 cap DAILY PO Last administered on 09:15; Start 01/10/17 at 09:00 Potassium Chloride (KCl) 20 meq ONCE ONCE PO Last administered on 01/09/17 13 :51; Start 01/09/17 at 11:45; Stop 01/09/17 at 11:59; Status DC A/P Assessment and Plan A/P Cellulitis, left anklefailed out patient therapy since patient is on Bactrim chronically. -Vancomycin IV with pharmacy consult for creatinine clearance and levels -Zosyn 4.5 g IV every 6 hours LeukocytosisPartly due to infection. However patient is also on chronic prednisone therapy. trending down. -UA negative -Blood cultures negative so far. -Supportive IVF DVT prophylaxis: Lovenox consulted PT. Discharge Planning dc home in am if stable. case management for HHC. Willow Flores MD Jan 10, 2017 12:32
--- NOTE | 2017-01-10 12:32 | HHI.FF ---
Face to Face Verification Diagnosis: (1) Cellulitis Physical Therapy Order: Evaluate and Treat Home Health Nursing Order: Medical education Signs/symptoms of disease process Nursing assessment with vital signs I have seen patient Maddi Phillips on 01/10/17. My clinical findings support the need for the requested home health care services because: Ltd mobility - disease progression I certify that my clinical findings support that this patient is homebound because: Unsteady gait/balance Willow Flores MD Jan 10, 2017 12:32
[2017-01-10] MEDS: VANCOMYCIN 1,000 MG/NS 250 ML IV SCH ×2 (21:32)
[2017-01-11 00:02] VITALS: BP 159/72; PULSE 69; RESP 20; TEMP 98.3; O2SAT 100
[2017-01-11] MEDS: PIPERACIL-TAZO 4.5 GM PREMIX 100 ML IV SCH ×2 (03:21→09:57)
[2017-01-11 04:16] VITALS: BP 143/67; PULSE 62; RESP 20; TEMP 97.6; O2SAT 100
[2017-01-11] MEDS: LEVOTHYROXINE SODIUM 75 MCG TAB PO SCH (06:01)
[2017-01-11 07:34] VITALS: BP 170/91; PULSE 68; RESP 14; TEMP 97.4; O2SAT 98
[2017-01-11 07:49] VITALS: PULSE 72
[2017-01-11] MEDS ORDERED: MAGNESIUM HYDROXIDE SUSP 30 ML CUP PO PRN (08:30)
--- NOTE | 2017-01-11 08:33 | HHI.PR ---
Subjective Remarks f/u; cellulitis resting comfortably with no distress. afebrile. denies pain. Objective Vitals Vital Signs Date Time Temp Pulse Resp B/P Pulse Ox O2 Delivery O2 Flow Rate FiO2 01/11/17 07:49 72 01/11/17 07:34 97.4 68 14 170/91 98 01/11/17 04:16 97.6 62 20 143/67 100 01/11/17 00:02 98.3 69 20 159/72 100 01/10/17 23:37 57 01/10/17 20:15 98.0 79 20 152/74 99 01/10/17 18:32 71 01/10/17 16:50 98.7 72 18 145/82 100 01/10/17 11:17 97.7 76 18 127/66 100 Result Diagram: 01/10/17 0431 01/11/17 0417 Imaging Last Impressions Tibia/Fibula X-Ray 01/08/17 0000 Signed Impressions: Service Date/Time: Sunday, January 08, 2017 20:13 - CONCLUSION: 1. Mild soft-tissue swelling at the ankle. 2. Chronic change at the distal Achilles and at the Achilles attachment site at the posterior calcaneus. Sean Clemente MD Lower Extremity Ultrasound 01/08/17 0000 Signed Impressions: Service Date/Time: Sunday, January 08, 2017 19:24 - CONCLUSION: No DVT. Sean Clemente MD Foot X-Ray 01/08/17 0000 Signed Impressions: Service Date/Time: Sunday, January 08, 2017 20:15 - CONCLUSION: Chronic change at the Achilles. The Achilles does appear thickened. Sean Clemente MD Objective Remarks GENERAL: This is a well-nourished, well-developed patient, in no apparent distress. CARDIOVASCULAR: Regular rate and regular rhythm without murmurs, gallops, or rubs. RESPIRATORY: Clear to auscultation. Breath sounds equal bilaterally. No wheezes , rales, or rhonchi. GASTROINTESTINAL: Abdomen soft, non-tender, nondistended. Normal, active bowel sounds MUSCULOSKELETAL: Extremities without clubbing, cyanosis, or edema. NEURO: Alert & Oriented x4 to person, place, time, situation. Moves all ext x4 skin; some erythema noted over the left leg- almost resolved. Procedures none Medications and IVs Current Medications Morphine Sulfate (Morphine Inj) 4 mg ONCE ONCE IV PUSH Last administered on 19:29; Start 01/08/17 at 19:30; Stop 01/08/17 at 19:31; Status DC Ondansetron HCl 4 mg 4 mg ONCE ONCE IV PUSH Last administered on 01/08/17 19: 28; Start 01/08/17 at 19:30; Stop 01/08/17 at 19:31; Status DC Vancomycin HCl 1000 mg/Sodium Chloride 250 ml @ 250 mls/hr ONCE ONCE IV Last administered on 01/08/17 20:31; Start 01/08/17 at 20:00; Stop 01/08/17 at 20:59 ; Status DC Sodium Chloride (NS 1000 ml Inj) 1,000 ml @ 1,000 mls/hr Q1H IV Last administered on 01/08/17 20:31; Start 01/08/17 at 20:07; Stop 01/08/17 at 21:06 ; Status DC IV Flush (NS Flush) 2 ml UNSCH PRN FLUSH FLUSH AFTER USING IV ACCESS Last administered on 01/09/17 03:12; Start 01/08/17 at 20:30 IV Flush (NS Flush) 2 ml BID FLUSH Last administered on 01/10/17 21:31; Start 01/08/17 at 21:00 Enoxaparin Sodium (Lovenox Inj) 30 mg Q24H SQ Last administered on 01/10/17 09 :16; Start 01/09/17 at 09:00 Naloxone HCl 0.4 mg 0.4 mg UNSCH PRN IV SEE LABEL COMMENTS; Start 01/08/17 at 20:30 Piperacillin Sod/ Tazobactam Sod 100 ml @ 200 mls/hr Q6H IV Last administered on 01/11/17 03:21; Start 01/08/17 at 21:00 Pharmacy Profile Note (Vancomycin Consult Pharmacy) 0 ml @ 0 mls/hr UNSCH OTHER ; Start 01/08/17 at 20:30 Lactobacillus Acidophilus 1 tab 1 tab TID PO Last administered on 01/10/17 18: 17; Start 01/09/17 at 09:00 Vancomycin HCl/ Sodium Chloride (Vancomycin Inj/ NS 250 ml Inj) 250 ml @ 250 mls/hr ONCE ONCE IV ; Start 01/08/17 at 22:00; Stop 01/08/17 at 22:59; Status DC Aspirin (Ecotrin Ec) 81 mg DAILY PO Last administered on 01/10/17 09:15; Start 01/09/17 at 09:00 Levothyroxine Sodium (Synthroid) 75 mcg DAILY@0600 PO Last administered on 01/11 06:01; Start 01/09/17 at 09:00 Pravastatin Sodium (Pravachol) 20 mg DAILY PO Last administered on 01/10/17 09 :16; Start 01/09/17 at 09:00 Pantoprazole Sodium (Protonix) 20 mg DAILY PO Last administered on 01/10/17 09 :15; Start 01/09/17 at 09:00 Prednisone (Deltasone) 10 mg BID PO Last administered on 01/10/17 21:32; Start 01/09/17 at 09:00 Non-Formulary Medication 37.5 mg 37.5 mg DAILY PO Edema; Start 01/09/17 at 09:00 ; Stop 01/09/17 at 11:46; Status DC Vancomycin HCl 1000 mg/Sodium Chloride 250 ml @ 250 mls/hr Q12H IV ; Start at 10:00; Status Cancel Vancomycin HCl/ Sodium Chloride (Vancomycin Inj/ NS 250 ml Inj) 250 ml @ 250 mls/hr Q24H IV Last administered on 01/10/17 21:32; Start 01/09/17 at 20:00 Miscellaneous Information SPECIFIC LAB TO BE DRAWN:VANCOMYCIN TROUGH DATE TO... ONCE ONCE XX ; Start 01/11/17 at 19:45; Stop 01/11/17 at 19:46 Triamterene/HCTZ (Dyazide 37.5-25 Mg) 1 cap DAILY PO Last administered on 09:15; Start 01/10/17 at 09:00 Potassium Chloride (KCl) 20 meq ONCE ONCE PO Last administered on 01/09/17 13 :51; Start 01/09/17 at 11:45; Stop 01/09/17 at 11:59; Status DC A/P Assessment and Plan A/P Cellulitis, left anklefailed out patient therapy since patient is on Bactrim chronically.-now has much improved. -change to po clindamycin upon discharge. LeukocytosisPartly due to infection. However patient is also on chronic prednisone therapy. trending down. -UA negative -Blood cultures negative so far. DVT prophylaxis: Lovenox consulted PT. Discharge Planning d/w the patient, her daughter and case management; dc planning to rehab. see med list. f/u with pcp upon discharge. time spent 31 min. Willow Flores MD Jan 11, 2017 08:33
[2017-01-11] MEDS ORDERED: CLIN1CAP6 PO (08:35)
[2017-01-11] MEDS ORDERED: SULF1TAB23 PO ×2 (08:35→08:40)
--- NOTE | 2017-01-11 08:36 | HHI.DCPOC ---
Discharge Care Plan Diagnosis: (1) Cellulitis Your Health Problems Are: Inflammation Swelling Goals to Promote Your Health * To prevent worsening of your condition and complications * To maintain your health at the optimal level Directions to Meet Your Goals Take your medications as prescribed Follow your dietary instruction Follow activity as directed Keep your appointments as scheduled Take your immunizations and boosters as scheduled If your symptoms worsen call your PCP, if no PCP go to Urgent Care Center or Emergency Room Smoking is Dangerous to Your Health. Avoid second hand smoke Call the 24-hour hour crisis hotline for domestic abuse at Willow Flores MD Jan 11, 2017 08:36
--- NOTE | 2017-01-11 08:36 | HHI.DS ---
Discharge Summary Admission Date Jan 08, 2017 at 20:21 Discharge Date: Jan 11, 2017 Admitting Diagnosis acute left leg cellulitis, leukocytosis (1) Cellulitis ICD Code: L03.90 Diagnosis: Principal (2) Leukocytosis ICD Code: D72.829 Diagnosis: Principal Procedures none Brief History - From Admission History taken from patient, her daughter at the bedside and ED physician. 86 y/o male with a history of pulmonary fibrosis, hyperlipidemia, and hypothyroidism presented with complaints and pain and swelling in left lower extremity for the past 3 days. She was unable to weight-bear and walk at home. Over the last 3 days the swelling and pain has increased. She states she was recently on Bactrim on MWF, along with prednisone for the last year for hypersensitivity pneumonitis She denies any fever, chills, chest pain, nausea or vomiting. PCP: Dr. Tejeda [employer] Detective: Dr. Lee Part from the above, patient denies any recent fever at home/nausea/vomiting/ diarrhea/urinary burning or pain on urination. Denies any hematemesis/hematochezia/melena/hematuria. Denies any chest pain/palpitations/dizziness/syncopal episodes. Reports she is chronically short of breath and on home oxygen 4 L 24/7 for her hypersensitivity pneumonitis. CBC/BMP: 01/10/17 0431 01/11/17 0417 Significant Findings Laboratory Tests Test 01/08/17 01/08/17 01/09/17 01/09/17 19:15 20:05 04:28 04:38 White Blood Count 20.0 TH/MM3 16.6 TH/MM3 (4.0-11.0) (4.0-11.0) Red Blood Count 3.78 MIL/MM3 3.34 MIL/MM3 (4.00-5.30) (4.00-5.30) Neutrophils (%) (Auto) 89.5 % 87.4 % (16.0-70.0) (16.0-70.0) Lymphocytes (%) (Auto) 6.2 % 7.9 % (9.0-44.0) (9.0-44.0) Neutrophils # (Auto) 17.9 TH/MM3 14.5 TH/MM3 (1.8-7.7) (1.8-7.7) Neutrophils % (Manual) 76 % (16-70) Band Neutrophils % 9 % (0-6) Neutrophils # (Manual) 17.0 TH/MM3 (1.8-7.7) Sodium Level 134 MEQ/L (136-145) Potassium Level 3.3 MEQ/L 3.4 MEQ/L (3.5-5.1) (3.5-5.1) Chloride Level 94 MEQ/L (98-107) Carbon Dioxide Level 32.3 MEQ/L (21.0-32.0) Blood Urea Nitrogen 20 MG/DL (7-18) 19 MG/DL (7-18) Creatinine 1.11 MG/DL 1.07 MG/DL (0.50-1.00) (0.50-1.00) Estimat Glomerular Filtration 47 ML/MIN (>89) 49 ML/MIN (>89) Rate Random Glucose 121 MG/DL 129 MG/DL (74-106) (74-106) C-Reactive Protein 29.00 MG/DL (0.00-0.30) Urine Protein 30 mg/dL (NEG-TRACE) Urine Occult Blood TRACE (NEG) Calcium Level 8.4 MG/DL (8.5-10.1) Hemoglobin 10.9 GM/DL (11.6-15.3) Hematocrit 32.4 % (35.0-46.0) Test 01/10/17 01/11/17 04:31 04:17 White Blood Count 11.9 TH/MM3 (4.0-11.0) Red Blood Count 3.53 MIL/MM3 (4.00-5.30) Hematocrit 34.2 % (35.0-46.0) Neutrophils (%) (Auto) 84.8 % (16.0-70.0) Neutrophils # (Auto) 10.1 TH/MM3 (1.8-7.7) Creatinine 1.22 MG/DL (0.50-1.00) Estimat Glomerular Filtration 42 ML/MIN (>89) Rate Imaging Last Impressions Tibia/Fibula X-Ray 01/08/17 0000 Signed Impressions: Service Date/Time: Sunday, January 08, 2017 20:13 - CONCLUSION: 1. Mild soft-tissue swelling at the ankle. 2. Chronic change at the distal Achilles and at the Achilles attachment site at the posterior calcaneus. Sean Clemente MD Lower Extremity Ultrasound 01/08/17 0000 Signed Impressions: Service Date/Time: Sunday, January 08, 2017 19:24 - CONCLUSION: No DVT. Sean Clemente MD Foot X-Ray 01/08/17 0000 Signed Impressions: Service Date/Time: Sunday, January 08, 2017 20:15 - CONCLUSION: Chronic change at the Achilles. The Achilles does appear thickened. Sean Clemente MD PE at Discharge GENERAL: This is a well-nourished, well-developed patient, in no apparent distress. CARDIOVASCULAR: Regular rate and regular rhythm without murmurs, gallops, or rubs. RESPIRATORY: Clear to auscultation. Breath sounds equal bilaterally. No wheezes , rales, or rhonchi. GASTROINTESTINAL: Abdomen soft, non-tender, nondistended. Normal, active bowel sounds MUSCULOSKELETAL: Extremities without clubbing, cyanosis, or edema. NEURO: Alert & Oriented x4 to person, place, time, situation. Moves all ext x4 skin; some erythema noted over the left leg- almost resolved. Hospital Course Cellulitis, left anklefailed out patient therapy since patient is on Bactrim chronically.-now has much improved. -change to po clindamycin upon discharge. LeukocytosisPartly due to infection. However patient is also on chronic prednisone therapy. trending down. -UA negative -Blood cultures negative so far. DVT prophylaxis: Lovenox consulted PT. Pt Condition on Discharge: Good Discharge Disposition: Discharge to SNF Discharge Time: > 30 minutes Discharge Instructions DIET: Follow Instructions for: Heart Healthy Diet Activities you can perform: Regular-No Restrictions Follow up Referrals: PCP Follow-up New Medications: Clindamycin (Clindamycin) 300 Mg Cap 300 MG PO TID Infection Days 6 Ref 0 CAP Changed Medications: Sulfamethoxazole-Trimethoprim (Sulfamethoxazole-Trimethoprim) 800-160 Mg Tab 1 TAB PO 3XWEEK M,W,F. start on 01/18/17. Infection Days 30 Ref 0 TAB (Changed from: M,W,F) Continued Medications: Aspirin (Aspirin) 81 Mg Tabdr 81 MG PO DAILY TAB Cyanocobalamin (B-12) 1,000 Mcg Subl 1000 MCG SL DAILY Nutritional Supplement Ref 0 TAB.SL Fish Oil-Cholecalciferol (Fish Oil + D3) 1,200-1,000 Mg-Unit Cap 1 CAP PO DAILY Nutritional Supplement #30 Ref 0 CAP Levothyroxine (Synthroid) 75 Mcg Tab 75 MCG PO DAILY Thyroid #30 Ref 0 TAB Lovastatin (Lovastatin) 20 Mg Tab 20 MG PO DAILY Cholesterol Management #30 Ref 0 TAB Omeprazole (Omeprazole) 20 Mg Tab 20 MG PO DAILY #30 Ref 0 TAB Prednisone (Prednisone) 10 Mg Tab 10 MG PO BID Ref 0 TAB Triamterene (Dyrenium) 50 Mg Cap 37.5 MG PO DAILY Edema #30 Ref 0 CAP ([Natural Potassium]) 99 MG Willow Flores MD Jan 11, 2017 08:36
[2017-01-11 09:10] VITALS: BP 140/70
[2017-01-11] MEDS: LACTOBACILLUS ACIDOPHILUS TAB PO SCH (09:56)
[2017-01-11] MEDS: PANTOPRAZOLE SOD 20 MG DELAYED RELEASE TAB PO SCH (09:56)
[2017-01-11] MEDS: predniSONE 10 MG TAB PO SCH (09:56)
[2017-01-11] MEDS: TRIAMTERENE/HCTZ 37.5 MG/25 MG CAP PO SCH (09:56)
[2017-01-11] MEDS: ASPIRIN EC 81 MG TABEC PO SCH (09:56)
[2017-01-11] MEDS: ENOXAPARIN SODIUM 30 MG/0.3 ML SYRINGE SQ SCH (09:56)
[2017-01-11] MEDS: SODIUM CHLORIDE 0.9% FLUSH 5 ML FLUSH FLUSH SCH (09:56)
[2017-01-11] MEDS: PRAVASTATIN SOD 20 MG TAB PO SCH (09:56)
[2017-01-11 11:14] VITALS: BP 174/87; PULSE 94; RESP 20; TEMP 97.7; O2SAT 99
[2017-01-11] MEDS ORDERED: PHARMACY ORDERED LAB XX ONE (19:45)
== END 2017-01-11 14:04 | disposition home or self-care (01) | DRG 603 ==
LOC: NEPE 18:53 → NEDA 20:21 → NEPFCDU 23:20
PROVIDERS: ADMIT Internal Medicine; ATTEND Internal Medicine
DX: L03.116 Cellulitis of left lower limb (principal); J67.9 Hypersensitivity pneumonitis due to unspecified organic dust; Z99.81 Dependence on supplemental oxygen; E03.9 Hypothyroidism, unspecified; E78.5 Hyperlipidemia, unspecified; I10 Essential (primary) hypertension; Z79.52 Long term (current) use of systemic steroids; J45.909 Unspecified asthma, uncomplicated; K21.9 Gastro-esophageal reflux disease without esophagitis
CPT/HCPCS: 73590; 73630; 80048; 81001; 82565; 83605; 83735; 85007; 85025; 85027; 85610; 85730; 86140; 87040; 93971; 96374; 96375; J1650; J2270; J2405; J2543; J3370; J7030; J7050; J7512